=== PATIENT | female | born 1960 | race Caucasian/White ===

== ENCOUNTER 2024-05-07 09:48 | Day surgery (SDC) | payer BC, SELFPAY ==
[2024-05-07 10:31] VITALS: BMI 23.4
[2024-05-07 10:39] VITALS: BP 147/105; PULSE 96; RESP 16; TEMP 36.4; O2SAT 100
[2024-05-07] MEDS: SODIUM CHLORIDE 0.9 % (FLUSH) 10 ML SYRINGE IVF (10:57)
--- NOTE | 2024-05-07 11:15 | CRLHL7_ITS ---
For Patients: As a result of the Century Cures Act, medical imaging exams and procedure reports are released immediately into your electronic medical record. You may view this report before your referring provider. If you have questions, please contact your health care provider. ULTRASOUND-GUIDED LEFT BREAST WIRE LOCALIZATION INDICATION: Intraductal papilloma. TECHNIQUE: Ultrasound-guided wire localization of the LEFT breast. FINDINGS: Informed consent was obtained. Benefits and risks were discussed. The patient agreed to proceed. A time-out was performed to verify correct patient and procedure. Utilizing sterile technique and 1 percent lidocaine for local anesthetic, a 7 cm Kopans needle wire combination was advanced through the intraductal 5 mm papilloma within the LEFT retroareolar breast without difficulty. The patient tolerated the procedure well. No immediate complications. The postprocedure mammogram is pending. IMPRESSION: Technically successful ultrasound-guided wire localization of a LEFT intraductal papilloma. Dictated by: Nick Raman MD @05/07/2024 12:40:02 PM /sp SP/Dictated by: Nick Raman MD @ 05/07/2024 12:40:00 PM (Electronically Signed)
--- NOTE | 2024-05-07 11:18 | W.PM.H&PU ---
History & Physical Update History & Physical Update H&P Reviewed and patient assessed: No changes noted
--- NOTE | 2024-05-07 11:21 | PM.GSPRC ---
Operative Note Date of procedure: 05/07/24 Pre-op diagnosis: 1. Left breast intraductal papilloma. Post-op diagnosis: Same Type of Procedure: 1. Wire localized excisional biopsy of the left breast intraductal papilloma. Indications: 63-year-old female was seen in clinic with a new diagnosis of left breast intraductal lesion. Patient developed milky discharge from the left breast and upon her workup was found to have a 5 x 5 mm left breast retro areola intraductal lesion that was thought to be intraductal papilloma. On clinical exam her papilloma was not palpable. There was no nipple retraction. Given patient's clinical history and her imaging findings, excisional biopsy of this papilloma was recommended. The procedure was discussed in detail. The risks associated procedure including infection, bleeding, and the need for additional procedures were all discussed with the patient, and she agreed to proceed. Procedure Description: After discussing the risks and benefits of the procedure, the patient signed informed consent.? The operative site was marked and the patient was brought to the operating room and placed on the operating table in supine position.? Care was taken to pad the patient's pressure points.?? The patient was then sedated by anesthesia.?? The operative site was then prepped and draped in the usual sterile fashion.? A time-out was then performed. Wire localization images were reviewed prior to bring patient into the operating room. Local anesthetic was injected at the surgical site. Periareolar skin incision was made with a scalpel spanning from 11-4 o'clock. Dermis and subcutaneous fat was divided with cautery. The wire was identified in the inferior lateral corner of the incision and was pulled into the incision. A pancake of retroareolar breast tissue was then excised with cautery. The wire was very superficial on the anterior Border of the specimen. this was sent to pathology. Pathologist was able to identify dilated mammary duct but there was no definite identification of the intraductal papilloma. the surgical field was examined and mostly dermis was identified of the areola and retroareola. Small amount of connective tissue with slightly thickened nodular appearing scar tissue was identified. This was excised with cautery and sent to pathology as additional left breast retroareolar tissue. Since the entire retroareolar tissue was excised with the first specimen, no additional tissue could have been present that would contain intraductal papilloma. I elected to proceed with conclusion of the case. Additional local anesthetic was injected at the surgical site. Hemostasis achieved with cautery. Breast tissue was then reapproximated with interrupted Vicryl sutures. The dermis was reapproximated with interrupted 3-0 Vicryl sutures. The skin was closed with a running 4-0 Monocryl stitch. Steri-Strips and sterile pressure dressing were placed over the incision. ? The patient was then woken and transported to the recovery area in stable condition. ? The patient tolerated the procedure well. Findings: Dilated retroareolar ducts identified but no clear intraductal papilloma seen on preliminary review. Anesthesia: MAC and local Surgeon: Tabitha Patel MD Estimated blood loss (mL): 2 Additional Specimen Information: 1. Left Retroareolar breast tissue. 2. Additional left breast retroareolar tissue. Condition: stable Disposition: same day
--- NOTE | 2024-05-07 12:00 | CRLHL7_ITS ---
For Patients: As a result of the Cures Act, medical imaging exams and procedure reports are released immediately into your electronic medical record. You may view this report before your referring provider. If you have questions, please contact your health care provider. X-RAY LEFT BREAST 2D W/ CAD POST WIRE PLACEMENT INDICATION: Intraductal papilloma. Wire localization. Follow-up. Post-procedure mammogram. TECHNIQUE: LEFT CC and true ML view of the LEFT breast were performed. FINDINGS: The 7 cm Kopans wire was passed readily through the intraductal papilloma. The barbed portion of the wire is just beyond the lesion in question. IMPRESSION: Post-procedure mammogram as described. ACR not applicable Dictated by: Nick Raman MD @05/07/2024 12:41:18 PM /sp SP/Dictated by: Nick Raman MD @ 05/07/2024 12:41:00 PM (Electronically Signed)
[2024-05-07] MEDS: 0.9 % SODIUM CHLORIDE 500 ML 500 ML 100 ML IV (12:15)
[2024-05-07] MEDS: CEFAZOLIN 2 GM INJ IVP (12:36)
--- NOTE | 2024-05-07 12:57 | CRLHL7_ITS ---
For Patients: As a result of the Cures Act, medical imaging exams and procedure reports are released immediately into your electronic medical record. You may view this report before your referring provider. If you have questions, please contact your health care provider. LEFT BREAST SPECIMEN RADIOGRAPH CLINICAL HISTORY: Possible papilloma. COMPARISON: 04/20/2024, FINDINGS: Two views of the LEFT breast specimen submitted. Specimen contains the localization wire and a few scattered microcalcifications. IMPRESSION: LEFT breast specimen submitted containing the localization wire. ACR not applicable Dictated by Benigno Randolph MD @ 05/11/2024 10:02:15 AM jj/Dictated by: Benigno Randolph MD @ 05/11/2024 10:02:00 AM (Electronically Signed)
--- NOTE | 2024-05-07 13:14 | P.ANES_ITS ---
Anesthesia Charges Start Date/Time Anesthesia Start Date: 05/07/24 Anesthesia Start Time: 12:28 Stop Date/Time Anesthesia Stop Date: 05/07/24 Anesthesia Stop Time: 13:39 Coding CPT Codes CPT Codes: ANESTH SKIN EXT/PER/ATRUNK - 34919 ([id number]) P2 - PATIENT W/MILD SYST DISEASE, QK - PESTICIDE APPLICATOR 2-4 CNCRNT ANES PROC, QX - PASTER SUPERVISOR SVC W/ MD MED DIRECTION
--- NOTE | 2024-05-07 13:14 | W.ANESCHARGE ---
Anesthesia Charges Start Date/Time Anesthesia Start Date: 05/07/24 Anesthesia Start Time: 12:28 Stop Date/Time Anesthesia Stop Date: 05/07/24 Anesthesia Stop Time: 13:39 Coding CPT Codes CPT Codes: ANESTH SKIN EXT/PER/ATRUNK - 86182 ([id number]) P2 - PATIENT W/MILD SYST DISEASE, QK - FRONT DESK RECEPTIONIST 2-4 CNCRNT ANES PROC, QX - GRUBBER SVC W/ MD MED DIRECTION
[2024-05-07] MEDS: LIDOCAINE 1%-EPI 1:100,000 20 ML INFILTRATI (13:26)
[2024-05-07] MEDS: BUPIVACAINE 0.25% 30 ML INJECTION (13:26)
[2024-05-07 13:35] VITALS: BP 135/85; PULSE 84; RESP 16; TEMP 37.3; O2SAT 99
--- NOTE | 2024-05-07 13:40 | P.ANES_ITS ---
Anesthesia Charges Start Date/Time Anesthesia Start Date: 05/07/24 Anesthesia Start Time: 12:28 Stop Date/Time Anesthesia Stop Date: 05/07/24 Anesthesia Stop Time: 13:39 Coding CPT Codes CPT Codes: ANESTH SKIN EXT/PER/ATRUNK - 97796 ([id number]) P2 - PATIENT W/MILD SYST DISEASE, QK - BREAK OUT MAN 2-4 CNCRNT ANES PROC, QX - HEALTH OCCUPATIONS TEACHER SVC W/ MD MED DIRECTION
--- NOTE | 2024-05-07 13:40 | W.ANESCHARGE ---
Anesthesia Charges Start Date/Time Anesthesia Start Date: 05/07/24 Anesthesia Start Time: 12:28 Stop Date/Time Anesthesia Stop Date: 05/07/24 Anesthesia Stop Time: 13:39 Coding CPT Codes CPT Codes: ANESTH SKIN EXT/PER/ATRUNK - 82017 ([id number]) P2 - PATIENT W/MILD SYST DISEASE, QK - SCREEN PRINTING PRESS OPERATOR 2-4 CNCRNT ANES PROC, QX - MARINE DRAFTER SVC W/ MD MED DIRECTION
[2024-05-07 13:45] VITALS: BP 141/89; PULSE 83; RESP 16; O2SAT 97
[2024-05-07 14:00] VITALS: BP 140/105; PULSE 78; RESP 16; O2SAT 98
[2024-05-07 14:15] VITALS: BP 148/95; PULSE 82; RESP 16; O2SAT 98
== END 2024-05-07 14:54 | disposition home or self-care (01) ==
PROVIDERS: PCP Family Medicine; Visit Provider Surgery
PROC: (CPT 19120; principal; 2024-05-07 12:00)
PROC: (CPT 19120; 2024-05-07 12:00)
DX: D24.2 Benign neoplasm of left breast (principal)
CPT/HCPCS: 19120; 00400; 19285; 77065; 88305; 88307; C1769; J0665; J0690; J1100; J2250; J2405; J2704; J3010; J3490; J7030